=== PATIENT | female | born 1990 | race Caucasian/White ===

== ENCOUNTER 2016-12-05 08:21 | Emergency (ER) | payer OTHER ==
[~2016-12-05] VITALS: Ht 149.9 cm; Wt 37.6 kg
[2016-12-05] MEDS ORDERED: FOLI0.8T2 PO (08:36)
[2016-12-05] MEDS ORDERED: PRENATAL (08:36)
[2016-12-05] MEDS ORDERED: SODIUM CHLORIDE FLUSH 10ML SYR IVF ONE (09:00)
[2016-12-05] MEDS: SODIUM CHLORIDE 0.9% 1,000ML IVBOLUS ONE ×2 (09:00→10:28)
[2016-12-05 09:14] LABS: BLOOD UREA NITROGEN 14 mg/dL (7-18)
[2016-12-05 09:16] LABS: HEMATOCRIT 41.9 % (34.6-47.8); HEMOGLOBIN 14.4 g/dL (11.7-16.4); WHITE BLOOD COUNT 13.9 x10^3/uL (3.4-10)
[2016-12-05 09:18] LABS: PATH.CAST-FLAG NOT PRESENT; SPERM-FLAG NOT PRESENT; SRC-FLAG NOT PRESENT; XTAL-FLAG NOT PRESENT; YLC-FLAG NOT PRESENT
[2016-12-05] MEDS ORDERED: RHOGAM FROM BLOOD BANK 1 NOTE EA IM/IV ONE (10:00)
[2016-12-05 10:54] VITALS: BP 118/83
[2016-12-05] MEDS ORDERED: SODIUM CHLORIDE 0.9% 1,000ML IVBOLUS ONE (11:00)
== END 2016-12-05 11:54 | disposition home or self-care (01) ==
LOC: ED 09:18
DX: O20.0 Threatened abortion (principal); Z3A.01 Less than 8 weeks gestation of pregnancy; F15.10 Other stimulant abuse, uncomplicated
CPT/HCPCS: 36415; 36430; 76801; 80048; 81001; 82040; 84702; 84703; 85025; 86850; 86900; 96360; 96361; 96372; 99285; J2790; J7030; 86901